=== PATIENT | female | born 1950 | race Caucasian/White ===

== ENCOUNTER → 2024-11-09 13:59 | Outpatient (REF) | payer OTHER, SELFPAY | LOC: HWRAD 13:59 | PROVIDERS: ATTENDING PHYSICIAN Nurse Practitioner; REFERRING PHYSICIAN Chiropractor | DX: M54.2 Cervicalgia (principal); M25.562 Pain in left knee | CPT/HCPCS: 72052; 73564 ==

== ENCOUNTER → 2024-11-25 10:32 | Outpatient (REF) | payer OTHER, SELFPAY | LOC: RAD 10:32 | PROVIDERS: ATTENDING PHYSICIAN Nurse Practitioner | DX: I65.23 Occlusion and stenosis of bilateral carotid arteries (principal) | CPT/HCPCS: 93880 ==

== ENCOUNTER → 2025-05-01 09:14 | Outpatient (REF) | payer OTHER, SELFPAY | LOC: PAVMRI 09:14 | PROVIDERS: ATTENDING PHYSICIAN Orthopaedic Surgery Hand Surgery; FAMILY PHYSICIAN Nurse Practitioner | DX: D21.12 Benign neoplasm of connective and other soft tissue of left upper limb, including shoulder (principal) | CPT/HCPCS: 73223 ==

== ENCOUNTER → 2025-05-15 10:22 | Outpatient (REF) | payer OTHER, SELFPAY | LOC: PAVMRI 10:22 | PROVIDERS: ATTENDING PHYSICIAN Orthopaedic Surgery Hand Surgery; FAMILY PHYSICIAN Nurse Practitioner | DX: D21.11 Benign neoplasm of connective and other soft tissue of right upper limb, including shoulder (principal) | CPT/HCPCS: 73223; A9575 ==